=== PATIENT | female | born 1965 | race Caucasian/White ===

== ENCOUNTER 2017-01-06 14:41 | Emergency (ER) | payer BC, OTHER ==
--- NOTE | ~2017-01-06 | EKG ---
PATIENT: INDRA TAYLOR UNIT #: [id number] Ventricular Rate: 90 BPM Atrial Rate: 90 BPM P-R Interval: 202 ms QRS Duration: 96 ms Q-T Interval: 378 ms QTC Calculation(Bezet): 462 ms P [place]: 49 degrees Calculated R [place]: 6 degrees Calculated T [place]: 16 degrees Diagnosis Line: Normal sinus rhythm Diagnosis Line: Possible Inferior infarct , age undetermined Diagnosis Line: Abnormal ECG Diagnosis Line: No previous ECGs available Diagnosis Line: Confirmed by KURT SMALL MD ([id number]) on Diagnosis Line: 01/07/2017 10:39:21 AM INTERPRETING MD: GEOVANNY KIRKLAND
[~2017-01-06 14:41] MED LIST: AMARYL PO; ANEXSIA 5/325 M1 TA1 PO; ASPIRIN81 M1 PO; CIPRO PO; CRESTOR10 MG PO; DEPLIN-ALGAL O1 EAC1 PO; DEPLIN15 MG PO; EFFEXOR XR PO; LEVEMIR SUBQ; LISINOPRIL5 MG PO; LOW DOSE ASPIRI81 M1 PO; MERREM1 G/VIA1 IV; METFORMIN HCL850 MG PO; NOVOLOG100 U/M1; VICTOZA0.6 MG/0.1 SUBQ; VITAMIN D31000 UNI1 PO
[2017-01-06 15:37] LABS: BASOPHIL% 0.6 % (0-2.5); EOSINOPHIL# 0.4 X10e3 (0-0.7); EOSINOPHIL% 7.3 % (0.0-7.0); HEMATOCRIT 39.2 % (35.0-45.0); HEMOGLOBIN 12.7 gm/dL (12.0-16.0); LYMPHOCYTE# 1.3 X10e3 (1.0-3.5); LYMPHOCYTE% 22.8 % (17.0-45.0); MEAN CELL VOLUME 88.6 FL (83-96); MEAN CORPUSCULAR HEMOGLOBIN 28.8 PG (28-34); MEAN CORPUSCULAR HGB CONC 32.5 g/dL (30-36); MEAN PLATELET VOLUME 8.1 FL (6.5-11.5); MONOCYTE# 0.6 X10e3 (0-1.0); MONOCYTE% 10.1 % (3.0-12.0); NEUTROPHIL# 3.3 X10e3 (1.5-7.1); NEUTROPHIL% 59.2 % (40-75); PLATELET COUNT 134 X10e3 (140-420); RED BLOOD COUNT 4.42 X10e (3.90-5.30); RED CELL DISTRIBUTION WIDTH 13.3 % (11.0-15.5); WHITE BLOOD COUNT 5.5 X10e3 (4.0-10.5)
[2017-01-06 15:38] LABS: DIFF IND NO
[2017-01-06 16:00] LABS: ALBUMIN SERUM 3.7 g/dL (3.5-5.0); BILIRUBIN, DIRECT 0.1 mg/dL (0.0-0.2); BILIRUBIN,INDIRECT 0.1 mg/dL (0.0-0.9); BILIRUBIN,TOTAL 0.2 mg/dL (0.2-2.0); BUN/CREATININE RATIO 25.38; CALCIUM SERUM 9.5 mg/dL (8.4-10.2); CREATININE SERUM 1.3 mg/dL (0.6-1.4); GLOM FILT RATE Estimated 46.8 mL/min (>60); POTASSIUM 4.8 mmol/L (3.5-5.1); PROTEIN TOTAL SERUM 7.5 g/dL (6.0-8.3)
[2017-01-06 20:11] LABS: URINE SOURCE CLEAN CATCH
[2017-01-06 20:17] LABS: URINE APPEARANCE CLOUDY; URINE BILIRUBIN NEG (NEG); URINE BLOOD 2+ (NEG); URINE COLOR YELLOW; URINE GLUCOSE 250 MG/DL (NEG); URINE KETONE NEG (NEG); URINE LEUKOCYTE ESTERASE 3+ (NEG); URINE NITRATE NEG (NEG); URINE PROTEIN 3+ (NEG); URINE SPECIFIC GRAVITY 1.021 (1.003-1.035); URINE UROBILINOGEN 0.2 MG/DL (NEG)
[2017-01-06 20:21] LABS: CULTURE INDICATED? YES; URINE BACTERIA AUWI NEG (NEGATIVE); URINE SQUAMOUS EPITHELIAL CELL OCC /[HPF]; UWBCS1 AUWI INNUM (0-5)
== END 2017-01-06 20:52 | disposition home or self-care (01) ==
LOC: CED 14:41
PROVIDERS: Emergency Medicine
DX: R42 Dizziness and giddiness (principal); N30.00 Acute cystitis without hematuria; E86.0 Dehydration; E11.9 Type 2 diabetes mellitus without complications; E78.5 Hyperlipidemia, unspecified; I10 Essential (primary) hypertension; Z90.49 Acquired absence of other specified parts of digestive tract; Z90.710 Acquired absence of both cervix and uterus
CPT/HCPCS: 36415; 80048; 80076; 81003; 82947; 85025; 87086; 93005; 96360; 99284